=== PATIENT | male | born 1960 | race Caucasian/White ===

== ENCOUNTER 2019-01-12 12:57 | Inpatient (IN) | payer BC, MEDICARE ==
[~2019-01-12] VITALS: Ht 175.3 cm; Wt 95.4 kg
[~2019-01-12 12:57] MED LIST: ATROPINE SYRINGE 0.1 MG/ML, 10ML ONE; ETOMIDATE 40 MG/20 ML ONE; PROPOFOL 10 MG/ML, 100ML IV ONE; SUCCINYLCHOLINE 20 MG/ML, 10ML ONE; VECURONIUM 10 MG ONE
--- NOTE | 2019-01-12 13:00 | NUR ---
PT PRESENTED TO ED AFTER A WITNESSED SYNCOPAL BY . PT BIB [facility] WITH A THIRD DEGREE HEART BLOCK. PT DROWSY, BUT ABLE TO ANSWER QUESTIONS APPROPRIATELY. PT PLACED IN ROOM AND PLACED ON BP, CARDIAC AND CONT. PULSE OXIMETER. ASSESSMENT COMPLETED. MD AT BEDSIDE. EKG DONE AND PRESENTED TO MD. PT IN COMPLETE HEART BLOCK. PATIENT BEING PACED AT THIS TIME AT 70 80MAP. P
--- NOTE | 2019-01-12 13:09 | NUR ---
DR. DE LUNA AT BEDSIDE
--- NOTE | 2019-01-12 13:11 | NUR ---
PT TAKEN OFF OF PACER AND PULSE 45.
--- NOTE | 2019-01-12 13:12 | NUR ---
2ND EKG DONE AND PRESENTED TO DR. DE LUNA. PT A&OX4.
--- NOTE | 2019-01-12 13:21 | NUR ---
called cardiovascular and spoke with Christi for stat echo
[2019-01-12 13:27] LABS: BASOPHILS # (AUTO) 0.04 x10^3/uL (0-0.1); BASOPHILS % (AUTO) 0 % (0-1); EOSINOPHILS % (AUTO) 3 % (1-7); LYMPHOCYTES # (AUTO) 1.85 x10^3/uL (1-3.4); LYMPHOCYTES % (AUTO) 16 % (22-44); MD NO; MEAN CORPUSCULAR HEMOGLOBIN 32.7 pg (27.5-34.5); MEAN CORPUSCULAR HGB CONC 33.2 g/dL (33.2-36.2); MEAN CORPUSCULAR VOLUME 98.6 fL (81-97); MEAN PLATELET VOLUME 8.1 fL (7.4-10.4); MONOCYTES # (AUTO) 0.81 x10^3/uL (0.2-0.8); MONOCYTES % (AUTO) 7 % (2-9); NEUTROPHILS # (AUTO) 8.46 x10^3/uL (1.8-6.8); NEUTROPHILS % (AUTO) 73 % (42-75); PLATELET COUNT 137 x10^3/uL (130-400); RED BLOOD COUNT 4.25 x10^6/uL (4.38-5.82); RED CELL DISTRIBUTION WIDTH 15.4 % (9.4-14.8)
[2019-01-12] MEDS ORDERED: SODIUM CHLORIDE FLUSH 10ML SYR IVF ONE (13:30)
[2019-01-12] MEDS ORDERED: PLEASE ENTER HEIGHT AND WEIGHT MC SCH (13:30)
[2019-01-12] MEDS ORDERED: ATROPINE 0.4 MG/ML, 1ML IVPush ONE ×2 (13:30→14:30)
[2019-01-12] MEDS ORDERED: PLEASE ENTER ALLERGIES MC SCH (13:30)
[2019-01-12] MEDS ORDERED: ATROPINE SYRINGE 0.1 MG/ML, 10ML IVPush ONE (13:30)
--- NOTE | 2019-01-12 13:33 | NUR ---
US AT BEDSIDE.
[2019-01-12 13:38] LABS: INTERNATIONAL NORMALIZED RATIO 1.1 (0.93-1.1); PROTHROMBIN TIME 11.5 Seconds (9.6-11.5)
[2019-01-12] MEDS ORDERED: METO25TA91 PO (13:38)
[2019-01-12] MEDS ORDERED: ATOR40TA78 PO (13:38)
[2019-01-12] MEDS ORDERED: CLOP75TA52 PO (13:41)
[2019-01-12 13:42] LABS: ALBUMIN 3.6 g/dL (3.4-5.0); ANION GAP 14 mmol/L (5-15); CALCIUM 8.3 mg/dL (8.5-10.1); CHLORIDE 103 mmol/L (98-107); TROPONIN I 0.028 ng/mL (0.000-0.045)
[2019-01-12] MEDS ORDERED: CALC667C PO (13:42)
[2019-01-12 13:47] LABS: ALANINE AMINOTRANSFERASE 15 U/L (12-78); ALKALINE PHOSPHATASE 87 U/L (45-117); BILIRUBIN,TOTAL 0.7 mg/dL (0.2-1.0); TOTAL PROTEIN 7.3 g/dL (6.4-8.2)
--- NOTE | 2019-01-12 13:58 | NUR ---
PT PREPPED FOR SURGERY. ECHO DONE AND AWAITING REPORT PRIOR TO GOING TO MEDICAL IMAGING TECHNICIAN.
--- NOTE | 2019-01-12 14:14 | NUR ---
PT A&OX4. HEART RATE 28. AWARE
--- NOTE | 2019-01-12 14:17 | NUR ---
PT GIVEN 0.5MG ATROPINE FOR PULSE 27. PT PLACED ON PACER PADS AGAIN AT 50 , MAP40.
[2019-01-12] MEDS ORDERED: ONDANSETRON 2MG/ML, 2ML ONE (14:22)
[2019-01-12] MEDS ORDERED: MORPHINE SULFATE 4 MG/ML, 1ML ONE (14:22)
[2019-01-12] MEDS ORDERED: MORPHINE SULFATE 4 MG/ML, 1ML IVPush ONE (14:30)
[2019-01-12] MEDS ORDERED: ONDANSETRON 2MG/ML, 2ML IVPush ONE (14:30)
[2019-01-12] MEDS ORDERED: PROPOFOL 100 ML IV PRN ×2 (14:43→17:58)
--- NOTE | 2019-01-12 14:47 | NUR ---
1430LATE ENTRY: PT STARTED TO CODE. CODE BLUE HIT. PACER INCREASED AND PATIENT AWOKE. PT THEN INTUBATED. 1437 ETOMIDATE 20MG IV 1438 SUCCINYLCHOLINE 1438 VECCURONIUM 10 MG AT 1444 FIGUEROA INSERTED AND OG TUBE 18 INSERTED. AT 1445 PACED AT 70.
[2019-01-12] MEDS ORDERED: ETOMIDATE 20 MG/10 ML IV ONE (15:00)
[2019-01-12] MEDS ORDERED: SUCCINYLCHOLINE 20 MG/ML, 10ML IVPush ONE (15:00)
[2019-01-12] MEDS ORDERED: VECURONIUM 10 MG IVPush ONE (15:00)
--- NOTE | 2019-01-12 15:00 | NUR ---
BLOCKING MACHINE TENDER RN AT BEDSIDE. PT IS NOT READY TO BE TRANSPORTED TO BLOCKING MACHINE TENDER YET.
--- NOTE | 2019-01-12 15:02 | NUR ---
VENT SETTINGS : TV 550. PEEP 5.0, RATE 14, 100%OXYGEN
--- NOTE | 2019-01-12 15:03 | NUR ---
PULSE IS 50 PALPABLE. RATE 70, MAP 90
--- NOTE | 2019-01-12 15:05 | NUR ---
PROPOFOL INCREASED TO 10MCG/KG/MIN
--- NOTE | 2019-01-12 15:16 | NUR ---
PT TRANSFERRED TO FIRE INSPECTOR.
[2019-01-12] MEDS ORDERED: CEFAZOLIN PMX 1GM/50ML 50 ML ONE (15:31)
[2019-01-12] MEDS ORDERED: FENTANYL PF 100 MCG/2ML ONE (15:31)
[2019-01-12] MEDS ORDERED: MIDAZOLAM 1 MG/ML, 2ML ONE (15:31)
[2019-01-12] MEDS ORDERED: LIDOCAINE 1%, 20ML ONE (15:32)
[2019-01-12] MEDS ORDERED: CEFAZOLIN 1,000 MG ONE (15:32)
[2019-01-12] MEDS ORDERED: ENALAPRILAT 1.25 MG/ML, 2ML IVPush PRN (16:00)
[2019-01-12] MEDS ORDERED: POLYETHYLENE GLYCOL 17 GM PACKET PO PRN (16:00)
[2019-01-12] MEDS ORDERED: OXYcodone IR 5MG TABLET PO PRN (16:00)
[2019-01-12] MEDS ORDERED: LORazepam 2 MG/ML, 1ML IVPush PRN (16:00)
[2019-01-12] MEDS ORDERED: DOCUSATE 100 MG CAPSULE PO PRN (16:00)
[2019-01-12] MEDS ORDERED: morphine SULFATE 10 MG/ML, 1ML IVPush PRN (16:00)
[2019-01-12] MEDS ORDERED: ACETAMINOPHEN 325 MG TABLET PO PRN (16:00)
[2019-01-12] MEDS ORDERED: ONDANSETRON 2MG/ML, 2ML IVPush PRN (16:00)
[2019-01-12] MEDS ORDERED: HOLD MEDICATION MC PRN (17:00)
[2019-01-12] MEDS ORDERED: HYDROcodone/APAP 5/325 TABLET PO PRN (17:00)
[2019-01-12] MEDS: ALBUTEROL/IPRATROPIUM 2.5MG/0.5MG, 3 ML INLINE SCH ×2 (18:00→22:06)
[2019-01-12] MEDS ORDERED: BISACODYL 10 MG SUPP PR PRN (18:00)
[2019-01-12] MEDS ORDERED: LIDOCAINE-MPF 1%, 2ML ENDO PRN (18:00)
[2019-01-12] MEDS ORDERED: PHARMACY MAY ADJ FOR RENAL FX MC SCH (18:00)
[2019-01-12] MEDS ORDERED: FENTANYL PF 100 MCG/2ML IVPush PRN (18:00)
[2019-01-12] MEDS ORDERED: SENNA/DOCUSATE TABLET NG PRN (18:00)
[2019-01-12] MEDS ORDERED: LACTULOSE 20 GM/30 ML UDC NG PRN (18:00)
[2019-01-12] MEDS ORDERED: SENNA 176 MG/5 ML ORAL SOL NG PRN (18:00)
[2019-01-12] MEDS ORDERED: ENALAPRILAT 1.25 MG/ML, 1ML ONE (20:40)
[2019-01-12] MEDS: SODIUM CHLORIDE FLUSH 10ML SYR IVF SCH (20:50)
[2019-01-12] MEDS ORDERED: FAMOTIDINE 20 MG/2 ML IVPush SCH (21:00)
[2019-01-12 21:23] VITALS: BP 145/75
[2019-01-12] MEDS: CEFAZOLIN PMX 1GM/50ML 50 ML IVPB SCH (23:05)
[2019-01-13 05:25] LABS: O2 FLOW 1 L/min
[2019-01-13 05:39] LABS: ALBUMIN 3.3 g/dL (3.4-5.0); ANION GAP 10 mmol/L (5-15); CALCIUM 8.1 mg/dL (8.5-10.1); CHLORIDE 105 mmol/L (98-107)
[2019-01-13 05:42] LABS: ALANINE AMINOTRANSFERASE 11 U/L (12-78); ALKALINE PHOSPHATASE 84 U/L (45-117); BASOPHILS # (AUTO) 0.02 x10^3/uL (0-0.1); BASOPHILS % (AUTO) 0 % (0-1); BILIRUBIN,TOTAL 0.6 mg/dL (0.2-1.0); EOSINOPHILS % (AUTO) 1 % (1-7); LYMPHOCYTES # (AUTO) 0.53 x10^3/uL (1-3.4); LYMPHOCYTES % (AUTO) 7 % (22-44); MD NO; MEAN CORPUSCULAR HEMOGLOBIN 32.2 pg (27.5-34.5); MEAN CORPUSCULAR HGB CONC 32.7 g/dL (33.2-36.2); MEAN CORPUSCULAR VOLUME 98.5 fL (81-97); MEAN PLATELET VOLUME 8.2 fL (7.4-10.4); MONOCYTES # (AUTO) 0.54 x10^3/uL (0.2-0.8); MONOCYTES % (AUTO) 7 % (2-9); NEUTROPHILS # (AUTO) 6.73 x10^3/uL (1.8-6.8); NEUTROPHILS % (AUTO) 85 % (42-75); PLATELET COUNT 111 x10^3/uL (130-400); RED BLOOD COUNT 3.71 x10^6/uL (4.38-5.82); RED CELL DISTRIBUTION WIDTH 15.4 % (9.4-14.8); TOTAL PROTEIN 6.7 g/dL (6.4-8.2)
[2019-01-13] MEDS: CEFAZOLIN PMX 1GM/50ML 50 ML IVPB SCH ×2 (08:07→15:03)
[2019-01-13] MEDS: SODIUM CHLORIDE FLUSH 10ML SYR IVF SCH (08:07)
[2019-01-13] MEDS ORDERED: INSULIN LISPRO 100 UNITS/ML, PEN SQ-INSULIN SCH (11:00)
[2019-01-13 14:00] VITALS: BP 120/70
== END 2019-01-13 16:00 | disposition home or self-care (01) | DRG 226 ==
LOC: ED 13:14 → EDIP 14:25 → CCU 17:37 → DCLOUNGE 01-13 15:46
PROVIDERS: ADMIT Internal Medicine; ATTEND Internal Medicine
PROC: 02HK3KZ Insertion of Defibrillator Lead into Right Ventricle, Percutaneous Approach (ICD-10-PCS; 2019-01-12)
PROC: 0JH608Z Insertion of Defibrillator Generator into Chest Subcutaneous Tissue and Fascia, Open Approach (ICD-10-PCS; 2019-01-12)
PROC: 02H63KZ Insertion of Defibrillator Lead into Right Atrium, Percutaneous Approach (ICD-10-PCS; 2019-01-12)
PROC: 5A1935Z Respiratory Ventilation, Less than 24 Consecutive Hours (ICD-10-PCS; 2019-01-12)
PROC: 0BH17EZ Insertion of Endotracheal Airway into Trachea, Via Natural or Artificial Opening (ICD-10-PCS; 2019-01-12)
PROC: 5A1D70Z Performance of Urinary Filtration, Intermittent, Less than 6 Hours Per Day (ICD-10-PCS; principal; 2019-01-13)
DX: I44.2 Atrioventricular block, complete (principal); I46.9 Cardiac arrest, cause unspecified; J96.90 Respiratory failure, unspecified, unspecified whether with hypoxia or hypercapnia; N18.6 End stage renal disease; I50.43 Acute on chronic combined systolic (congestive) and diastolic (congestive) heart failure; I13.2 Hypertensive heart and chronic kidney disease with heart failure and with stage 5 chronic kidney disease, or end stage renal disease; I42.9 Cardiomyopathy, unspecified; J98.11 Atelectasis; D63.1 Anemia in chronic kidney disease; E11.22 Type 2 diabetes mellitus with diabetic chronic kidney disease; E78.5 Hyperlipidemia, unspecified; E11.42 Type 2 diabetes mellitus with diabetic polyneuropathy; D72.828 Other elevated white blood cell count; Z88.8 Allergy status to other drugs, medicaments and biological substances; Z87.891 Personal history of nicotine dependence; Z88.1 Allergy status to other antibiotic agents; Z99.2 Dependence on renal dialysis; Z88.0 Allergy status to penicillin
CPT/HCPCS: 31500; 33249; 36415; 36600; 51702; 96374; 96375; 96376; 99291; 99292; J3490; J7620; 71045; 80047; 80053; 82803; 82962; 83735; 83880; 84100; 84478; 84484; 85025; 85610; 85730; 87070; 87081; 87205; 90935; 93005; 93306; 94002; 94003; 94150; 99156; 99157; C1721; C1779; C1892; C1895; G0378; J0461; J0690; J2250; J2405; J2704; J3010; J0330; J2270